=== PATIENT | male | born 1980 | race Caucasian/White ===

== ENCOUNTER 2019-09-28 17:21 | Emergency (ER) | payer SELFPAY ==
[~2019-09-28] VITALS: Ht 180 cm; Wt 91.0 kg
[2019-09-28] MEDS ORDERED: PRD20T PO (19:22)
--- NOTE | 2019-09-28 19:22 | ED Cough/URI ---
General Chief Complaint: Cough/Cold/Flu Symptoms Stated Complaint: FEVER / COUGH / FATIGUE Nursing Triage Note: PT STATES COUGH AND FLU LIKE S/S FOR ABOUT 3 DAYS, HEADACHE OFF AND ON, NO MEDS TAKEN, 98.2 AT TRIAGE. Sepsis Screen: Possible Severe Sepsis Risk History of Present Illness Date Seen by Provider: Oct 01, 2019 Time Seen by Provider: 18:00 Initial Comments 39-year-old male presents for allergy symptoms. He has been noticing postnasal drainage. He denies any risk for COVID. He does believe he possibly had it in late April but was not tested. Timing/Duration: other (3-4 days) Severity/Quality: mild, dry cough Prior Episodes/Possible Cause: occasional episodes Associated Symptoms: cough, nasal congestion, nasal drainage Allergies and Home Medications Allergies Coded Allergies: No Known Drug Allergies (Unverified , 09/28/19) Home Medications Prednisone 20 Mg Tab, 40 MG PO DAILY Prescribed by: YANET TRAVIS on 09/28/191921 Patient Home Medication List Home Medication List Reviewed: Yes Review of Systems Review of Systems Constitutional: no symptoms reported, see HPI EENTM: see HPI, nose congestion Respiratory: see HPI, cough; No short of breath Cardiovascular: no symptoms reported, see HPI Gastrointestinal: no symptoms reported, see HPI Genitourinary: no symptoms reported, see HPI Immunological/Allergic: no symptoms reported, see HPI All Other Systems Reviewed Negative Unless Noted: Yes Past Unaqfmo-Zlablk-Ntrbzy Hx Past Med/Social Hx: Reviewed Nursing Past Med/Soc Hx Patient Social History Alcohol Use: Regular Use Number of Drinks Today: 6 Alcohol Beverage of Choice: Beer Recreational Drug Use: No Smoking Status: Current Everyday Smoker Type Used: Cigarettes Recent Foreign Travel: No Contact w/Someone Who Travel: No Recent Infectious Disease Expo: No Recent Hopitalizations: No Physical Abuse: No Sexual Abuse: No Mistreated: No Fear: No Seasonal Allergies Seasonal Allergies: No Past Medical History Surgeries: Yes (HERNIA WHEN 4 MONTHS OLD) Respiratory: No Cardiac: No Neurological: No Genitourinary: No Gastrointestinal: No Musculoskeletal: No Endocrine: No HEENT: No Cancer: No Psychosocial: No Physical Exam Vital Signs - First Documented 09/28/19 09/28/19 17:52 19:45 Temp 36.7 Pulse 104 Resp 18 B/P (MAP) 131/104 (113) Pulse Ox 97 O2 Delivery Room Air Capillary Refill : Less Than 3 Seconds Height: '" Weight: lbs. oz. kg; 28.00 BMI Method: General Appearance: WD/WN, no apparent distress Eyes: Bilateral Eye Normal Inspection, Bilateral Eye PERRL, Bilateral Eye EOMI HEENT: PERRL/EOMI, normal ENT inspection, TMs normal, other (postnasal drainage) Neck: non-tender, full range of motion, supple, normal inspection Respiratory: chest non-tender, lungs clear, normal breath sounds Cardiovascular: normal peripheral pulses, regular rate, rhythm Gastrointestinal: normal bowel sounds, non tender, soft Neurologic/Psychiatric: no motor/sensory deficits, alert, normal mood/affect, oriented x 3 Skin: normal color, warm/dry Progress/Results/Core Measures Suspected Sepsis Recent Fever Within 48 Hours: Yes Infection Criteria Present: Suspected New Infection New/Unexplained Altered Menta: No Sepsis Screen: Possible Severe Sepsis Risk SIRS Temperature: Pulse: 104 Respiratory Rate: 18 Blood Pressure 131 /104 Mean: 113 Results/Orders My Orders Orders - YANET TRAVIS Prednisone Tablet (Deltasone Tablet) (09/28/19 19:30) Vital Signs/I&O 09/28/19 09/28/19 09/28/19 17:52 17:58 19:45 Temp 36.7 36.7 Pulse 104 95 Resp 18 18 B/P (MAP) 131/104 (113) 145/102 (113) Pulse Ox 97 O2 Delivery Room Air Room Air Room Air Capillary Refill : Less Than 3 Seconds Blood Pressure Mean: 113 Departure Impression Primary Impression: URI (upper respiratory infection) Qualified Codes: J06.9 - Acute upper respiratory infection, unspecified Additional Impressions: Sinus congestion Allergic rhinitis Qualified Codes: J30.2 - Other seasonal allergic rhinitis Disposition: HOME, SELF-CARE Condition: Improved Departure-Patient Inst. Decision time for Depature: 19:15 Referrals: [facility] Patient Instructions: Viral Upper Respiratory Infection, Adult (DC) Add. Discharge Instructions: Take prednisone for the next 3 days as prescribed. Use Afrin nasal spray for 3 days. Use Mucinex one tablet twice daily. Increase water intake. Alternate between Tylenol 650 and ibuprofen 600 mg every 4 hours for fever or pain. Return to the emergency department for new, urgent health care problems. Establish with a primary care provider at [facility]. All discharge instructions reviewed with patient and/or family. Voiced understanding. Scripts Prednisone (Prednisone) 20 Mg Tab 40 MG PO DAILY, #6 TAB 0 Refills Prov: YANET TRAVIS 09/28/19 YANET TRAVIS Sep 28, 2019 19:22
[2019-09-28] MEDS ORDERED: predniSONE 20 MG TAB PO ONE (19:30)
[2019-09-28 19:45] VITALS: BP 145/102
== END 2019-09-28 19:44 | disposition home or self-care (01) ==
LOC: ER 17:22
DX: J06.9 Acute upper respiratory infection, unspecified (principal); J30.9 Allergic rhinitis, unspecified; F17.210 Nicotine dependence, cigarettes, uncomplicated
CPT/HCPCS: 99283

== ENCOUNTER 2019-11-08 10:59 | Emergency (ER) | payer SELFPAY ==
[~2019-11-08] VITALS: Ht 180 cm; Wt 97.0 kg
[~2019-11-08 10:59] MED LIST: PRD20T PO
[2019-11-08] MEDS ORDERED: TETANUS,DIPTH,PERTUSS P/F (BOOSTRIX) 0.5 ML VIAL IM ONE (11:15)
--- NOTE | 2019-11-08 11:24 | ED Upper Extremity ---
General Chief Complaint: Laceration Stated Complaint: FINGER LACERATION Nursing Triage Note: PT WAS CUTTING WITH A SKILL SAW AND CUT HIS SECOND DIGIT IN THE LT HAND. APPEARS TO HAVE CUT THE PAD OFF BUT NOT INTO THE BONE. Nursing Sepsis Screen: No Definite Risk Source: patient Exam Limitations: no limitations History of Present Illness Date Seen by Provider: Nov 08, 2019 Time Seen by Provider: 11:17 Initial Comments Laceration to the tip of the pointer finger on the left hand. This was from a skill saw while at work. He states it is not a Workmen's Comp. issue. Onset: just prior to arrival Severity: moderate Pain/Injury Location: left 2nd finger Method of Injury: direct blow Allergies and Home Medications Allergies Coded Allergies: No Known Drug Allergies (Unverified , 09/28/19) Home Medications Prednisone 20 Mg Tab, 40 MG PO DAILY Prescribed by: YANET TRAVIS on 09/28/191921 Patient Home Medication List Home Medication List Reviewed: Yes Review of Systems Constitutional: see HPI EENTM: see HPI Respiratory: no symptoms reported Cardiovascular: no symptoms reported Genitourinary: no symptoms reported Musculoskeletal: see HPI Skin: no symptoms reported Psychiatric/Neurological: No Symptoms Reported Past Awulrqx-Sibeij-Qhjjhg Hx Patient Social History Alcohol Use: Occasionally Uses Number of Drinks Today: AA Alcohol Beverage of Choice: Beer Recreational Drug Use: No Smoking Status: Current Everyday Smoker Type Used: Cigarettes Recent Foreign Travel: No Contact w/Someone Who Travel: No Recent Infectious Disease Expo: No Recent Hopitalizations: No Seasonal Allergies Seasonal Allergies: No Past Medical History Surgeries: Yes (HERNIA WHEN 4 MONTHS OLD) Respiratory: No Cardiac: No Neurological: No Genitourinary: No Gastrointestinal: No Musculoskeletal: No Endocrine: No HEENT: No Cancer: No Psychosocial: No Physical Exam Vital Signs Vital Signs - First Documented 11/08/19 11:10 Temp 36.6 Pulse 91 Resp 20 B/P (MAP) 152/103 (119) Pulse Ox 96 O2 Delivery Room Air Capillary Refill : Less Than 3 Seconds Height, Weight, BMI Height: '" Weight: lbs. oz. kg; 29.00 BMI Method: General Appearance: WD/WN, no apparent distress HEENT: PERRL/EOMI, normal ENT inspection Respiratory: no respiratory distress, no accessory muscle use Elbow/Forearm: normal inspection, non-tender Wrist: Yes normal inspection, Yes non-tender Hand: normal inspection, Left (skin avulsion of the pad of the pointer finger on the left. Bleeding is controlled. This is down to the tip of the phalanx but bone is still covered with periosteum so for this reason I will not run., We'll put a big bulky dressing and allow this to heal by secondary intent.) Progress/Results/Core Measures Results/Orders My Orders Orders - FRANTZ CRANE APRN Dipht,Pertuss(Acell),Tet Adult (Boostrix (11/08/19 11:15) Vital Signs/I&O 11/08/19 11:10 Temp 36.6 Pulse 91 Resp 20 B/P (MAP) 152/103 (119) Pulse Ox 96 O2 Delivery Room Air Blood Pressure Mean: 119 Departure Impression Primary Impression: Skin avulsion Disposition: 01 HOME, SELF-CARE Condition: Stable Departure-Patient Inst. Decision time for Depature: 11:22 Patient Instructions: SKIN AVULSION Add. Discharge Instructions: 1. Leave this dressing in place for about 48 hours. Return to ER Friday at about noon or shortly after and we'll replace the dressing and take another look at the wound. In the meantime take antibiotics and pain medication as directed. Scripts Amoxicillin/Potassium Clav (Augmentin 875-125 Tablet) 1 Each Tablet 1 EACH PO BID, #14 TAB 0 Refills Prov: FRANTZ CRANE APRN 11/08/19 FRANTZ CRANE APRN Nov 08, 2019 11:24
[2019-11-08] MEDS ORDERED: HYDR-3870 PO (11:25)
[2019-11-08] MEDS ORDERED: AMOX-358 PO (11:25)
[2019-11-08 11:45] VITALS: BP 145/98
== END 2019-11-08 11:45 | disposition home or self-care (01) ==
LOC: EDUNIT# 10:59 → ER 11:00
DX: S61.211A Laceration without foreign body of left index finger without damage to nail, initial encounter (principal); F17.210 Nicotine dependence, cigarettes, uncomplicated; Z79.52 Long term (current) use of systemic steroids; Z23 Encounter for immunization; W27.0XXA Contact with workbench tool, initial encounter; Y92.89 Other specified places as the place of occurrence of the external cause; Y99.0 Civilian activity done for income or pay
CPT/HCPCS: 64450; 90715

== ENCOUNTER 2019-12-01 11:14 | Emergency (ER) | payer SELFPAY ==
[~2019-12-01] VITALS: Ht 180 cm; Wt 95.0 kg
[~2019-12-01 11:14] MED LIST changes: +AMOX-358 PO; +HYDR-3870 PO
[2019-12-01] MEDS ORDERED: HYDROcodone/APAP 5 MG/325 MG (LORTAB) TAB PO ONE (12:00)
--- NOTE | 2019-12-01 12:27 | Diagnostic Imaging Report ---
INDICATION: Left shoulder pain post fall. EXAMINATION: AP, oblique, and lateral views of the left shoulder are obtained. FINDINGS: No fracture or acute bony abnormality is seen. There are degenerative changes in glenohumeral joint with inferior glenoid spurring. There is a benign-appearing cystic lesion in the humeral head. IMPRESSION: Chronic changes as above with no acute-appearing abnormality. Dictated by: Dictated on workstation # [id number]
[2019-12-01] MEDS ORDERED: ACHD5005 PO (12:37)
[2019-12-01] MEDS ORDERED: NAPR-1071 PO (12:37)
--- NOTE | 2019-12-01 12:38 | ED Upper Extremity ---
General Chief Complaint: Upper Extremity Stated Complaint: L SHOULDER PAIN Nursing Triage Note: PT ARRIVES TO ER WITH C/O L SHOULDER PAIN DUE TO A FALL THIS MORNING WHILE GETTING GAS. PAIN STARTS IN ELBOW AND GOES UP TO SHOULDER. PT STATES MUSCLE FEELS TIGHT. Nursing Sepsis Screen: No Definite Risk Source: patient Exam Limitations: no limitations History of Present Illness Date Seen by Provider: Dec 01, 2019 Time Seen by Provider: 12:34 Initial Comments Left shoulder pain after fall out of his truck this morning. Fell and landed on left shoulder. Onset: just prior to arrival Severity: moderate Pain/Injury Location: left shoulder Method of Injury: fell Modifying Factors: Worse With Movement Allergies and Home Medications Allergies Coded Allergies: No Known Drug Allergies (Unverified , 09/28/19) Home Medications Amoxicillin/Potassium Clav 1 Each Tablet, 1 EACH PO BID Prescribed by: FRANTZ CRANE on 11/08/19 1125 Hydrocodone/Acetaminophen 1 Each Tablet, 1 EACH PO Q4-6HR PRN for PAIN-MODERATE Prescribed by: FRANTZ CRANE on 11/08/19 1125 Prednisone 20 Mg Tab, 40 MG PO DAILY Prescribed by: YANET TRAVIS on 09/28/191921 Patient Home Medication List Home Medication List Reviewed: Yes Review of Systems Constitutional: see HPI EENTM: see HPI Respiratory: no symptoms reported Cardiovascular: no symptoms reported Genitourinary: no symptoms reported Musculoskeletal: see HPI Skin: no symptoms reported Psychiatric/Neurological: No Symptoms Reported Past Vqokmbw-Mgtzot-Fbglud Hx Patient Social History Alcohol Beverage of Choice: Beer Type Used: Cigarettes Recent Foreign Travel: No Contact w/Someone Who Travel: No Recent Infectious Disease Expo: No Recent Hopitalizations: No Seasonal Allergies Seasonal Allergies: No Past Medical History Surgeries: Yes (HERNIA WHEN 4 MONTHS OLD) Respiratory: No Cardiac: No Neurological: No Genitourinary: No Gastrointestinal: No Musculoskeletal: No Endocrine: No HEENT: No Cancer: No Psychosocial: No Physical Exam Vital Signs Vital Signs - First Documented 12/01/19 11:24 Temp 36.8 Pulse 102 Resp 20 B/P (MAP) 153/101 (118) Pulse Ox 97 Capillary Refill : Less Than 3 Seconds Height, Weight, BMI Height: '" Weight: lbs. oz. kg; 29.00 BMI Method: General Appearance: WD/WN, no apparent distress Respiratory: no respiratory distress, no accessory muscle use Shoulder: normal inspection, limited ROM (does have full ROM but it is painful and he completes ROM exercises slowly. ) Elbow/Forearm: normal inspection, non-tender Wrist: Yes normal inspection, Yes non-tender Hand: normal inspection, non-tender Neurologic/Psychiatric: alert, normal mood/affect, oriented x 3 Skin: normal color, warm/dry Progress/Results/Core Measures Results/Orders My Orders Orders - FRANTZ CRANE APRN Shoulder, Left, 3 Views (12/01/19 11:45) Hydrocodone/Apap 5/325 Tablet (Lortab 5 (12/01/19 12:00) Ct Extremity Upper Left Wo (12/01/19 12:25) Medications Given in ED Current Medications Medications Dose Ordered Sig/Arlet Route Start Time Stop Time Status Last Admin Dose Admin Acetaminophen/ Hydrocodone Bitart 1 tab ONCE ONCE PO 12/01/19 12:00 12/01/19 12:01 DC 12/01/19 12:00 1 TAB Vital Signs/I&O 12/01/19 11:24 Temp 36.8 Pulse 102 Resp 20 B/P (MAP) 153/101 (118) Pulse Ox 97 Blood Pressure Mean: 118 Departure Impression Primary Impression: Internal derangement of left shoulder Disposition: HOME, SELF-CARE Condition: Stable Departure-Patient Inst. Decision time for Depature: 12:35 Referrals: NO,LOCAL PHYSICIAN (PCP) Primary Care Physician YAA ELLINGTON BETHANY N MD GAULT,KARLENE HARDING,KRISTIAN HARDING,MALOU Krueger MD Patient Instructions: How to Use a Shoulder Sling Add. Discharge Instructions: 1. Follow-up with a primary care physician. If the pain sticks around into next week then you need to get an MRI of the shoulder to look at the soft tissues which cannot be seen on x-ray. This could represent a rotator cuff or labrum injury. Pain medication as directed, ice pack, sling. When you're able to move the arm without pain in the shoulder then you can stop using the sling. All discharge instructions reviewed with patient and/or family. Voiced understanding. Scripts Naproxen (Naprosyn) 500 Mg Tablet 500 MG PO BID PRN for PAIN-MODERATE (5-7), #30 TAB 0 Refills Prov: FRANTZ CRANE APRN 12/01/19 Work/School Note: Work Release Form Date Seen in the Emergency Department: Dec 01, 2019 Return to Work: Dec 03, 2019 FRANTZ CRANE APRN Dec 01, 2019 12:38
[2019-12-01 12:45] VITALS: BP 150/97
== END 2019-12-01 12:45 | disposition home or self-care (01) ==
LOC: EDUNIT# 11:14 → ER 11:16
DX: M24.812 Other specific joint derangements of left shoulder, not elsewhere classified (principal); Z79.52 Long term (current) use of systemic steroids
CPT/HCPCS: 73030

== ENCOUNTER 2019-12-29 12:46 | Emergency (ER) | payer SELFPAY ==
[~2019-12-29] VITALS: Ht 180.3 cm; Wt 100.0 kg
[~2019-12-29 12:46] MED LIST changes: +ACHD5005 PO; +NAPR-1071 PO
--- NOTE | 2019-12-29 13:46 | ED Upper Extremity ---
General Stated Complaint: L SHOULDER POPPING OUT OF SOCKET History of Present Illness Date Seen by Provider: Dec 29, 2019 Time Seen by Provider: 13:25 Initial Comments 39-year-old male presents for left shoulder pain. He states that it maybe subluxating at times. He was evaluated here on 12/01/19 after an injury at work to his left shoulder. Since then he's been taking the naproxen intermi ttently. He is returning since his symptoms have not improved. He has not seen a primary care provider or orthopedic surgeon for the shoulder. He is able to continue working. Onset: other (since 12/01/19) Pain/Injury Location: left shoulder Method of Injury: fell Modifying Factors: Improves With Pain Medication, Improves With Rest Allergies and Home Medications Allergies Coded Allergies: No Known Drug Allergies (Unverified , 09/28/19) Home Medications Amoxicillin/Potassium Clav 1 Each Tablet, 1 EACH PO BID Prescribed by: FRANTZ CRANE on 11/08/19 1125 Hydrocodone/Acetaminophen 1 Each Tablet, 1 EACH PO Q4-6HR PRN for PAIN-MODERATE Prescribed by: FRANTZ CRANE on 11/08/19 1125 Hydrocodone/Acetaminophen 1 Each Tablet, 1 EACH PO Q4H PRN for PAIN-MODERATE (5- 7) Prescribed by: FRANTZ CRANE on 12/01/19 1238 Naproxen 500 Mg Tablet, 500 MG PO BID PRN for PAIN-MODERATE (5-7) Prescribed by: FRANTZ CRANE on 12/01/19 1237 Prednisone 20 Mg Tab, 40 MG PO DAILY Prescribed by: YANET TRAVIS on 09/28/19 1922 Patient Home Medication List Home Medication List Reviewed: Yes Review of Systems Constitutional: no symptoms reported, see HPI Musculoskeletal: see HPI, joint pain (left shoulder pain) All Other Systems Reviewed Negative Unless Noted: Yes Past Zrvntuz-Glqzeh-Nxoeji Hx Past Med/Social Hx: Reviewed Nursing Past Med/Soc Hx Patient Social History Alcohol Beverage of Choice: Beer Type Used: Cigarettes Recent Foreign Travel: No Contact w/Someone Who Travel: No Recent Hopitalizations: No Seasonal Allergies Seasonal Allergies: No Past Medical History Surgeries: Yes (HERNIA WHEN 4 MONTHS OLD) Respiratory: No Cardiac: No Neurological: No Genitourinary: No Gastrointestinal: No Musculoskeletal: No Endocrine: No HEENT: No Cancer: No Psychosocial: No Physical Exam Vital Signs Vital Signs - First Documented 12/29/19 13:22 Temp 36.6 Pulse 96 Resp 16 B/P (MAP) 138/106 (117) O2 Delivery Room Air Capillary Refill : Height, Weight, BMI Height: '" Weight: lbs. oz. kg; 29.00 BMI Method: General Appearance: WD/WN, no apparent distress Neck: non-tender, full range of motion, supple, normal inspection Cardiovascular: normal peripheral pulses, regular rate, rhythm Respiratory: chest non-tender, lungs clear, normal breath sounds Shoulder: normal inspection; No asymmetry, No bone tenderness, No deformity, No ecchymosis; limited ROM (secondary to pain, lacking 20 of extension), pain (left shoulder), soft tissue tenderness (anterior) Elbow/Forearm: normal inspection, non-tender, normal ROM, Left Neurologic/Tendon: normal sensation, normal motor functions, normal tendon functions Neurologic/Psychiatric: no motor/sensory deficits, alert, normal mood/affect, oriented x 3 Left shoulder biceps, triceps, and external rotators V/V. negative apprehension and impingement. No instability left shoulder. Progress/Results/Core Measures Results/Orders Vital Signs/I&O 12/29/19 13:22 Temp 36.6 Pulse 96 Resp 16 B/P (MAP) 138/106 (117) O2 Delivery Room Air Departure Impression Primary Impression: Left shoulder pain Qualified Codes: M25.512 - Pain in left shoulder Disposition: 01 HOME, SELF-CARE Condition: Improved Departure-Patient Inst. Decision time for Depature: 13:40 Referrals: [facility] MICHAEL,LOCAL PHYSICIAN (PCP) Primary Care Physician AKSHAT DWYER MD, MICHAEL P MD Patient Instructions: Shoulder Pain (DC) Add. Discharge Instructions: Ice to left shoulder 20 minutes every 2 hours while awake. Alternate between ibuprofen 600 mg and Tylenol 650 mg every 4 hours for pain. Establish care with a primary care provider at [facility]. You may go to [facility] and be referred to orthopedics for your shoulder pain or if your insurance allows you may schedule a direct appointment with Dr. Dywer or Dr. Trujillo. Return to the emergency department for new, urgent health care problems. YANET TRAVIS Dec 29, 2019 13:46
[2019-12-29 13:57] VITALS: BP 144/74
== END 2019-12-29 13:57 | disposition home or self-care (01) ==
LOC: EDUNIT# 12:46 → ER 12:47
DX: M25.512 Pain in left shoulder (principal); Z79.52 Long term (current) use of systemic steroids

== ENCOUNTER 2020-12-15 10:41 | Emergency (ER) | payer OTHER ==
[~2020-12-15] VITALS: Ht 180 cm; Wt 120.0 kg
[2020-12-15] MEDS ORDERED: HYDROcodone/APAP 5 MG/325 MG (LORTAB) TAB PO ONE (11:00)
--- NOTE | 2020-12-15 11:07 | ED Lower Extremity ---
General Chief Complaint: Lower Extremity Stated Complaint: LEFT FOOT FRACTURE Source: patient Exam Limitations: no limitations History of Present Illness Date Seen by Provider: Dec 15, 2020 Time Seen by Provider: 11:05 Initial Comments To ER with increased left ankle pain without antecedent injury since Friday of this week. No fevers or chills. He had an infection in his right ankle postoperatively after he fell sustaining bilateral calcaneus fractures in February of this year. He was treated by Dr. Kirkpatrick at [facility] in [place]. Onset: other (2 days ago) Severity: moderate Pain/Injury Location: right ankle Method of Injury: unknown (No known injury recently) Modifying Factors: Worse With Movement Allergies and Home Medications Allergies Coded Allergies: No Known Drug Allergies (Unverified , 09/28/19) Patient Home Medication List Home Medication List Reviewed: Yes Amoxicillin/Potassium Clav (Augmentin 875-125 Tablet) 1 Each Tablet, 1 EACH PO BID Prescribed by: FRANTZ CRANE on 11/08/19 1125 Hydrocodone/Acetaminophen (Lorcet 5-325 mg Tablet) 1 Each Tablet, 1 EACH PO Q4- 6HR PRN for PAIN-MODERATE Prescribed by: FRANTZ CRANE on 11/08/19 1125 Hydrocodone/Acetaminophen (Hydrocodone-Acetamin 5-325 mg) 1 Each Tablet, 1 EACH PO Q4H PRN for PAIN-MODERATE (5-7) Prescribed by: FRANTZ CRANE on 12/01/19 1238 Hydrocodone/Acetaminophen (Hydrocodone-Acetamin 5-325 mg) 1 Each Tablet, 1 TAB PO Q4H PRN for PAIN-MODERATE (5-7) Prescribed by: FRANTZ CRANE on 12/15/20 1213 Meloxicam (Mobic) 15 Mg Tablet, 15 MG PO DAILY Prescribed by: FRANZT CRANE on 12/15/20 1213 Naproxen (Naprosyn) 500 Mg Tablet, 500 MG PO BID PRN for PAIN-MODERATE (5-7) Prescribed by: FRANTZ CRANE on 12/01/19 1237 Prednisone (Prednisone) 20 Mg Tab, 40 MG PO DAILY Prescribed by: YANET TRAVIS on 09/28/19 1922 Review of Systems Constitutional: see HPI; No chills, No fever EENTM: see HPI Respiratory: no symptoms reported Cardiovascular: no symptoms reported Genitourinary: no symptoms reported Musculoskeletal: no symptoms reported Skin: no symptoms reported Psychiatric/Neurological: No Symptoms Reported Past Vfqpmct-Kkhnde-Bmtnof Hx Seasonal Allergies Seasonal Allergies: No Past Medical History Surgeries: Yes (HERNIA WHEN 4 MONTHS OLD) Respiratory: No Cardiac: No Neurological: No Genitourinary: No Gastrointestinal: No Musculoskeletal: No Endocrine: No HEENT: No Cancer: No Psychosocial: No Physical Exam Vital Signs Vital Signs - First Documented 12/15/20 12/15/20 10:51 11:19 Temp 36.8 Pulse 127 Resp 22 B/P (MAP) 120/98 (105) Pulse Ox 97 O2 Delivery Room Air Capillary Refill : Height, Weight, BMI Height: '" Weight: lbs. oz. kg; 30.00 BMI Method: General Appearance: WD/WN, no apparent distress HEENT: PERRL/EOMI, normal ENT inspection Neck: non-tender, full range of motion Hips: bilateral hip non-tender, bilateral hip normal inspection, bilateral hip normal range of motion Legs: bilateral leg non-tender, bilateral leg normal inspection, bilateral leg normal range of motion Knees: bilateral knee non-tender, bilateral knee normal inspection, bilateral knee normal range of motion Ankles: left ankle swelling, left ankle other (No erythema. There is no open wound.) Feet: bilateral foot non-tender, bilateral foot normal inspection, bilateral foot normal range of motion Neurologic/Psychiatric: alert, normal mood/affect, oriented x 3 Skin: normal color, warm/dry Procedures/Interventions Additional Procedures: Arthrocentesis Aspirating Progress Under sterile technique did an arthrocentesis of the left ankle identifying a space between the medial malleolus and the tibialis anterior tendon. Marked with a skin pen cleansed with Betadine which was allowed to dry. Anesthetized with a 25-gauge needle using 1 mL of 1 percent lidocaine without epinephrine. Then stuck a longer 20-gauge needle into the joint space and aspirated 1.25 mL of serosanguineous but not cloudy synovial fluid. Covered with a Band-Aid. Progress/Results/Core Measures Results/Orders Lab Results Laboratory Tests Test 12/15/20 11:13 12/15/20 11:52 12/15/20 12:02 Range/Units White Blood Count 15.1 H 4.3-11.0 10^3/uL Red Blood Count 5.48 4.30-5.52 10^6/uL Hemoglobin 16.1 13.3-17.7 g/dL Hematocrit 49 40-54 % Mean Corpuscular Volume 89 80-99 fL Mean Corpuscular Hemoglobin 29 25-34 pg Mean Corpuscular Hemoglobin Concent 33 32-36 g/dL Red Cell Distribution Width 14.1 10.0-14.5 % Platelet Count 372 130-400 10^3/uL Mean Platelet Volume 10.4 9.0-12.2 fL Immature Granulocyte % (Auto) 2 % Neutrophils (%) (Auto) 63 42-75 % Lymphocytes (%) (Auto) 18 12-44 % Monocytes (%) (Auto) 14 H 0-12 % Eosinophils (%) (Auto) 2 0-10 % Basophils (%) (Auto) 1 0-10 % Neutrophils # (Auto) 9.6 H 1.8-7.8 10^3/uL Lymphocytes # (Auto) 2.8 1.0-4.0 10^3/uL Monocytes # (Auto) 2.1 H 0.0-1.0 10^3/uL Eosinophils # (Auto) 0.3 0.0-0.3 10^3/uL Basophils # (Auto) 0.2 H 0.0-0.1 10^3/uL Immature Granulocyte # (Auto) 0.3 H 0.0-0.1 10^3/uL Neutrophils % (Manual) 69 % Lymphocytes % (Manual) 14 % Monocytes % (Manual) 9 % Eosinophils % (Manual) 4 % Basophils % (Manual) 0 % Band Neutrophils 4 % Blood Morphology Comment NORMAL Erythrocyte Sedimentation Rate 1 0-15 MM/HR Sodium Level 138 135-145 MMOL/L Potassium Level 3.8 3.6-5.0 MMOL/L Chloride Level 102 98-107 MMOL/L Carbon Dioxide Level 24 21-32 MMOL/L Anion Gap 12 5-14 MMOL/L Blood Urea Nitrogen 15 7-18 MG/DL Creatinine 0.96 0.60-1.30 MG/DL Estimat Glomerular Filtration Rate 86 BUN/Creatinine Ratio 16 Glucose Level 111 H 70-105 MG/DL Calcium Level 9.5 8.5-10.1 MG/DL Lactic Acid Level 1.15 0.50-2.00 MMOL/L Procalcitonin 0.04 <0.10 NG/ML Body Fluid Source SYNOVIAL Body Fluid Color YELLOW Body Fluid Appearance SLT BLDY Body Fluid WBC 755 /uL Body Fluid RBC 6250 /uL Body Fluid Polynuclear WBCs 7 % Body Fluid Mononuclear WBCs 11 % Body Fluid Lymphocytes 82 % Body Fluid Eosinophils % Body Fluid Other Cells % Micro Results Microbiology 12/15/20 Blood Culture - Preliminary, Resulted My Orders Orders - FRANTZ CRANE APRN Cbc With Automated Diff (12/15/20 11:00) Erythrocyte Sedimentation Rate (12/15/20 11:00) Basic Metabolic Panel (12/15/20 11:00) Ankle, Left, 3 Views (12/15/20 11:00) Hydrocodone/Apap 5/325 Tablet (Lortab 5 (12/15/20 11:00) Manual Differential (12/15/20 11:13) Blood Culture (12/15/20 11:42) Lactic Acid Analyzer (12/15/20 11:42) Procalcitonin (Pct) (12/15/20 11:42) Body Fluid Cell Count (12/15/20 11:45) Body Fluid Culture (12/15/20 11:45) Lidocaine 1% Inj 20 Ml (Xylocaine 1% Inj (12/15/20 11:45) Ketorolac Injection (Toradol Injection) (12/15/20 12:15) Medications Given in ED Vital Signs/I&O 12/15/20 12/15/20 12/15/20 12/15/20 10:51 11:19 12:17 13:17 Temp 36.8 Pulse 127 111 96 109 Resp 22 20 20 20 B/P (MAP) 120/98 (105) 120/77 129/87 135/75 Pulse Ox 97 94 96 O2 Delivery Room Air Room Air Room Air Room Air Departure Communication (Admissions) Family Conversation 12/16/2020-12:30 PM lab called to report on blood culture appearance of Listeria. Given that he did have a leukocytosis yesterday I will call him in some Bactrim to [facility]. I did notify him of this via telephone and he agrees with this plan. He does not have any fevers nausea vomiting or GI type illness. He is not known to be immunocompromised. The joint fluid culture has not yet grown anything. NAME: SHERI CHUN [facility] REC#: [id number] PT STATUS: REG ER : 1980 PHYSICIAN: FRANTZ CRANE APRN ADMIT DATE: 12/15/20/ER Draft Date of Exam:12/15/20 ANKLE, LEFT, 3 VIEWS INDICATION: Left ankle pain. TIME OF EXAM: 11:18 AM 3 views of the left ankle were obtained. Alignment is normal, ankle mortise is well maintained. Talar dome is smooth. No definite ankle fracture is identified. There are postoperative changes to the calcaneus which appears to be significantly comminuted. There are residual calcaneal fracture lines present. IMPRESSION: Postoperative changes to the calcaneus. No acute ankle fracture is detected. Dictated on workstation # [id number] Dict: 12/15/20 1150 Trans: 12/15/20 1155 CV [id number] Interpreted by: VERONICA SWEET MD Electronically signed by: Impression Primary Impression: Osteoarthritis of left ankle Disposition: HOME, SELF-CARE Condition: Stable Departure-Patient Inst. Decision time for Depature: 12:12 Referrals: NO,LOCAL PHYSICIAN (PCP/Family) Primary Care Physician Patient Instructions: Osteoarthritis Add. Discharge Instructions: . Medication as directed. Follow-up with your orthopedist from [place]. Return to ER for any concerns such as fevers redness or anything else that worries you. All discharge instructions reviewed with patient and/or family. Voiced understanding. Scripts Sulfamethoxazole/Trimethoprim (Bactrim Ds Tablet) 1 Each Tablet 1 EACH PO BID, #14 TAB Prov: FRANTZ CRANE APRN 12/16/20 Ampicillin Trihydrate (Ampicillin Trihydrate) 500 Mg Capsule 500 MG PO Q6H, #20 CAP Prov: FRANTZ CRANE APRN 12/16/20 Meloxicam (Mobic) 15 Mg Tablet 15 MG PO DAILY, #15 TAB Prov: FRANTZ CRANE APRN 12/15/20 Hydrocodone/Acetaminophen (Hydrocodone-Acetamin 5-325 mg) 1 Each Tablet 1 TAB PO Q4H PRN for PAIN-MODERATE (5-7), #14 TAB Prov: FRANTZ CRANE APRN 12/15/20 FRANTZ CRANE APRN Dec 15, 2020 11:07
[2020-12-15 11:16] LABS: BASOPHILS # (AUTO) 0.2 10^3/uL (0.0-0.1); BASOPHILS % (AUTO) 1 % (0-10); EOSINOPHILS # (AUTO) 0.3 10^3/uL (0.0-0.3); EOSINOPHILS % (AUTO) 2 % (0-10); HEMATOCRIT 49 % (40-54); HEMOGLOBIN 16.1 g/dL (13.3-17.7); LYMPHOCYTES # (AUTO) 2.8 10^3/uL (1.0-4.0); LYMPHOCYTES % (AUTO) 18 % (12-44); MEAN CORPUSCULAR HEMOGLOBIN 29 pg (25-34); MEAN CORPUSCULAR HGB CONC 33 g/dL (32-36); MEAN CORPUSCULAR VOLUME 89 fL (80-99); MEAN PLATELET VOLUME 10.4 fL (9.0-12.2); MONOCYTES # (AUTO) 2.1 10^3/uL (0.0-1.0); MONOCYTES % (AUTO) 14 % (0-12); NEUTROPHILS # (AUTO) 9.6 10^3/uL (1.8-7.8); NEUTROPHILS % (AUTO) 63 % (42-75); PLATELET COUNT 372 10^3/uL (130-400); WHITE BLOOD COUNT 15.1 10^3/uL (4.3-11.0)
[2020-12-15 11:31] LABS: CALCIUM 9.5 MG/DL (8.5-10.1); CREATININE SERUM 0.96 MG/DL (0.60-1.30); POTASSIUM 3.8 MMOL/L (3.6-5.0)
[2020-12-15] MEDS ORDERED: LIDOCAINE 1% INJ 20 ML 20 ML VIAL INJ ONE (11:45)
--- NOTE | 2020-12-15 11:55 | Diagnostic Imaging Report ---
INDICATION: Left ankle pain. TIME OF EXAM: 11:18 AM 3 views of the left ankle were obtained. Alignment is normal, ankle mortise is well maintained. Talar dome is smooth. No definite ankle fracture is identified. There are postoperative changes to the calcaneus which appears to be significantly comminuted. There are residual calcaneal fracture lines present. IMPRESSION: Postoperative changes to the calcaneus. No acute ankle fracture is detected. Dictated by: Dictated on workstation # [id number]
[2020-12-15 12:03] LABS: BAND NEUTROPHILS 4 %; BASOPHILS % (MANUAL) 0 %; EOSINOPHILS % (MANUAL) 4 %; ERYTHROCYTE SEDIMENTATION RATE 1 MM/HR (0-15); LYMPHOCYTES % (MANUAL) 14 %; MONOCYTES % (MANUAL) 9 %; NEUTROPHILS % (MANUAL) 69 %; RBC MORPH NORMAL
[2020-12-15] MEDS ORDERED: ACHD5005 PO (12:13)
[2020-12-15] MEDS ORDERED: MELO15TA14 PO (12:13)
[2020-12-15] MEDS ORDERED: KETOROLAC 30 MG/ML VIAL IVP ONE (12:15)
[2020-12-15 13:17] VITALS: BP 135/75
[2020-12-15 13:17] LABS: BODY FLUID COLOR YELLOW; BODY FLUID SOURCE SYNOVIAL
[2020-12-15 13:18] LABS: BODY FLUID APPEARENCE SLT BLDY; BODY FLUID RBC COUNT 6250 /uL; BODY FLUID WBC TOTAL COUNT 755 /uL; LYMPHOCYTES,BODY FLUID 82 %
[2020-12-16] MEDS ORDERED: AMPI500C9 PO (12:38)
[2020-12-16] MEDS ORDERED: SULF1TAB38 PO (12:38)
== END 2020-12-15 13:17 | disposition home or self-care (01) ==
LOC: EDUNIT# 10:41 → ER 10:45
DX: M19.072 Primary osteoarthritis, left ankle and foot (principal); Z79.52 Long term (current) use of systemic steroids
CPT/HCPCS: 36415; 73610; 80048; 83605; 84145; 85007; 85027; 85652; 87040; 87070; 87077; 87205; 89051

== ENCOUNTER 2022-01-13 15:13 | Emergency (ER) | payer OTHER ==
[~2022-01-13] VITALS: Ht 180 cm; Wt 122.0 kg
[~2022-01-13 15:13] MED LIST changes: +AMPI500C9 PO; +MELO15TA14 PO; +SULF1TAB38 PO
--- NOTE | 2022-01-13 15:44 | ED General ---
General Chief Complaint: General Problems/Pain Stated Complaint: ISSUE WITH PICC LINE Nursing Triage Note: STATES PICC LINE IS NOT WORKING AND IT IS TIME FOR HIS ABX. Source of Information: Patient Exam Limitations: No Limitations History of Present Illness Date Seen by Provider: Jan 13, 2022 Time Seen by Provider: 15:25 Initial Comments Patient is a 41-year-old male who presents to the emergency department for evaluation of his PICC line that he states is not working normally. Patient has had a long-term indwelling PICC line for antibiotic treatment related to o steomyelitis in his right foot. Oertli taking daily daptomycin and Rocephin. He states his attempted to flush the line earlier today and it seemed to flush very sluggishly. Patient was seen and had the PICC line placed at [facility] in [place]. He states he has no other acute complaints at this time. Home health has been changing the dressing every 7 days. Patient denies any fever. He also denies any leakage from the PICC line site. Allergies and Home Medications Allergies Coded Allergies: No Known Drug Allergies (Unverified , 09/28/19) Patient Home Medication List Home Medication List Reviewed: Yes Amoxicillin/Potassium Clav (Augmentin 875-125 Tablet) 1 Each Tablet, 1 EACH PO BID Prescribed by: FRANTZ CRANE on 11/08/19 1125 Ampicillin Trihydrate (Ampicillin Trihydrate) 500 Mg Capsule, 500 MG PO Q6H Prescribed by: FRANTZ CRANE on 12/16/20 1238 Hydrocodone/Acetaminophen (Lorcet 5-325 mg Tablet) 1 Each Tablet, 1 EACH PO Q4- 6HR PRN for PAIN-MODERATE Prescribed by: FRANTZ CRANE on 11/08/19 1125 Hydrocodone/Acetaminophen (Hydrocodone-Acetamin 5-325 mg) 1 Each Tablet, 1 EACH PO Q4H PRN for PAIN-MODERATE (5-7) Prescribed by: FRANTZ CRANE on 12/01/19 1238 Hydrocodone/Acetaminophen (Hydrocodone-Acetamin 5-325 mg) 1 Each Tablet, 1 TAB PO Q4H PRN for PAIN-MODERATE (5-7) Prescribed by: FRANTZ CRANE on 12/15/20 1213 Meloxicam (Mobic) 15 Mg Tablet, 15 MG PO DAILY Prescribed by: FRANTZ CRANE on 12/15/20 1213 Naproxen (Naprosyn) 500 Mg Tablet, 500 MG PO BID PRN for PAIN-MODERATE (5-7) Prescribed by: FRANTZ CRAEN on 12/01/19 1237 Prednisone (Prednisone) 20 Mg Tab, 40 MG PO DAILY Prescribed by: YANET TRAVIS on 09/28/19 192 Sulfamethoxazole/Trimethoprim (Bactrim Ds Tablet) 1 Each Tablet, 1 EACH PO BID Prescribed by: FRANTZ CRANE on 12/16/20 1238 Review of Systems Review of Systems Constitutional: no symptoms reported EENTM: no symptoms reported Respiratory: no symptoms reported Cardiovascular: no symptoms reported Gastrointestinal: no symptoms reported Genitourinary: no symptoms reported Musculoskeletal: no symptoms reported Skin: no symptoms reported Psychiatric/Neurological: No Symptoms Reported Hematologic/Lymphatic: No Symptoms Reported Immunological/Allergic: no symptoms reported Past Xqvnfqy-Xsndlg-Jydxeq Hx Patient Social History Tobacco Use?: Yes Use of E-Cig and/or Vaping dev: Yes Substance use?: No Alcohol Use?: No Immunizations Up To Date First/Initial COVID19 Vaccinat: UNKNOWN Second COVID19 Vaccination Jaylen: SEP 2020 COVID19 Vaccine 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 oz. 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 PICC line site appears clean dry and intact. No drainage or bleeding noted from the site. The infusion port was flushed easily with saline. There was brisk return of blood with aspiration. A total of 30 mL of saline was flushed into the line. Patient will be discharged home with recommendations for supportive care and follow-up with PCP as needed. Return precautions for urgent symptomology discussed. Patient verbalized understanding Departure Impression Primary Impression: PIC line (peripherally inserted central catheter) flush Disposition: 01 HOME, SELF-CARE Condition: Stable Departure-Patient Inst. Decision time for Depature: 15:40 Referrals: NO,LOCAL PHYSICIAN (PCP/Family) Primary Care Physician Patient Instructions: Peripherally-Inserted Central Catheter (DC) KIRT JENNINGS APRN Jan 13, 2022 15:44
[2022-01-13 15:46] VITALS: BP 125/79
== END 2022-01-13 15:47 | disposition home or self-care (01) ==
LOC: EDUNIT# 15:13 → ER 15:15
DX: Z45.2 Encounter for adjustment and management of vascular access device (principal); M86.9 Osteomyelitis, unspecified; F17.290 Nicotine dependence, other tobacco product, uncomplicated; Z28.311 Partially vaccinated for COVID-19
CPT/HCPCS: 99281

== ENCOUNTER → 2022-01-21 | Outpatient (CLI) | payer OTHER ==
[2022-01-21 17:25] LABS: BASOPHILS # (AUTO) 0.2 10^3/uL (0.0-0.1); BASOPHILS % (AUTO) 1 % (0-10); EOSINOPHILS # (AUTO) 0.2 10^3/uL (0.0-0.3); EOSINOPHILS % (AUTO) 1 % (0-10); HEMATOCRIT 46 % (40-54); LYMPHOCYTES # (AUTO) 2.7 10^3/uL (1.0-4.0); LYMPHOCYTES % (AUTO) 17 % (12-44); MEAN CORPUSCULAR HEMOGLOBIN 29 pg (25-34); MEAN CORPUSCULAR HGB CONC 33 g/dL (32-36); MEAN CORPUSCULAR VOLUME 88 fL (80-99); MEAN PLATELET VOLUME 10.8 fL (9.0-12.2); MONOCYTES # (AUTO) 2.5 10^3/uL (0.0-1.0); MONOCYTES % (AUTO) 17 % (0-12); NEUTROPHILS # (AUTO) 9.5 10^3/uL (1.8-7.8); NEUTROPHILS % (AUTO) 62 % (42-75); PLATELET COUNT 345 10^3/uL (130-400); WHITE BLOOD COUNT 15.2 10^3/uL (4.3-11.0)
[2022-01-21 17:46] LABS: ALBUMIN 4.2 GM/DL (3.2-4.5)
[2022-01-21 17:47] LABS: BAND NEUTROPHILS 0 %; BASOPHILS % (MANUAL) 1 %; EOSINOPHILS % (MANUAL) 1 %; ERYTHROCYTE SEDIMENTATION RATE 17 MM/HR (0-15); LYMPHOCYTES % (MANUAL) 15 %; MONOCYTES % (MANUAL) 14 %; NEUTROPHILS % (MANUAL) 69 %; POTASSIUM 4.3 MMOL/L (3.6-5.0); RBC MORPH NORMAL
[2022-01-21 17:48] LABS: CALCIUM 9.1 MG/DL (8.5-10.1)
[2022-01-21 17:49] LABS: TOTAL PROTEIN 7.6 GM/DL (6.4-8.2)
[2022-01-21 17:51] LABS: BILIRUBIN,TOTAL 0.4 MG/DL (0.1-1.0)
[2022-01-21 17:53] LABS: CREATININE SERUM 0.99 MG/DL (0.60-1.30)
== END ==
LOC: HH 17:15
PROVIDERS: ATTEND Internal Medicine Infectious Disease
DX: M89.50 Osteolysis, unspecified site (principal)
CPT/HCPCS: 80053; 82550; 85007; 85027; 85652

== ENCOUNTER → 2022-02-04 | Outpatient (CLI) | payer OTHER ==
[2022-02-04 12:19] LABS: HEMATOCRIT 51 % (32-48); HEMOGLOBIN 16.3 g/dL (10.9-15.8); MEAN CORPUSCULAR HEMOGLOBIN 28 pg (25-34); MEAN CORPUSCULAR HGB CONC 32 g/dL (32-36); MEAN CORPUSCULAR VOLUME 88 fL (80-99); MEAN PLATELET VOLUME 10.6 fL (9.0-12.2); PLATELET COUNT 433 10^3/uL (130-400); WHITE BLOOD COUNT 11.1 10^3/uL (4.3-11.0)
[2022-02-04 12:41] LABS: ERYTHROCYTE SEDIMENTATION RATE 2 MM/HR
[2022-02-04 12:44] LABS: ALBUMIN 4.4 GM/DL (3.2-4.5); CHLORIDE 103 MMOL/L (98-107); POTASSIUM 4.7 MMOL/L (3.6-5.0); SODIUM 135 MMOL/L (135-145)
[2022-02-04 12:45] LABS: CALCIUM 9.5 MG/DL (8.5-10.1)
[2022-02-04 12:47] LABS: GLUCOSE 104 MG/DL (70-105)
[2022-02-04 12:48] LABS: BILIRUBIN,TOTAL 0.4 MG/DL (0.1-1.0); CARBON DIOXIDE 21 MMOL/L (21-32)
[2022-02-04 12:50] LABS: ALKALINE PHOSPHATASE 142 U/L (40-136)
[2022-02-04 12:51] LABS: BUN/CREATININE RATIO 12
[2022-02-04 12:53] LABS: ALANINE AMINOTRANSFERASE 40 U/L (0-55); CREATINE KINASE 141 U/L
== END ==
LOC: HH 12:10
PROVIDERS: ATTEND Internal Medicine Infectious Disease
DX: M86.271 Subacute osteomyelitis, right ankle and foot (principal); Z79.2 Long term (current) use of antibiotics
CPT/HCPCS: 80053; 82550; 85027; 85652

== ENCOUNTER → 2022-02-11 | Outpatient (CLI) | payer OTHER ==
[2022-02-11 11:54] LABS: BASOPHILS # (AUTO) 0.1 10^3/uL (0.0-0.1); BASOPHILS % (AUTO) 1 % (0-10); EOSINOPHILS # (AUTO) 0.2 10^3/uL (0.0-0.3); EOSINOPHILS % (AUTO) 2 % (0-10); HEMATOCRIT 49 % (32-48); HEMOGLOBIN 15.8 g/dL (10.9-15.8); LYMPHOCYTES # (AUTO) 2.5 10^3/uL (1.0-4.0); LYMPHOCYTES % (AUTO) 25 % (12-44); MEAN CORPUSCULAR HEMOGLOBIN 28 pg (25-34); MEAN CORPUSCULAR HGB CONC 32 g/dL (32-36); MEAN CORPUSCULAR VOLUME 88 fL (80-99); MONOCYTES # (AUTO) 1.3 10^3/uL (0.0-1.0); MONOCYTES % (AUTO) 13 % (0-12); NEUTROPHILS # (AUTO) 5.8 10^3/uL (1.8-7.8); NEUTROPHILS % (AUTO) 57 % (42-75); PLATELET COUNT 410 10^3/uL (130-400); WHITE BLOOD COUNT 10.2 10^3/uL (4.3-11.0)
[2022-02-11 12:07] LABS: BAND NEUTROPHILS 1 %; EOSINOPHILS % (MANUAL) 3 %; LYMPHOCYTES % (MANUAL) 20 %; MONOCYTES % (MANUAL) 18 %; NEUTROPHILS % (MANUAL) 58 %; RBC MORPH NORMAL
[2022-02-11 12:13] LABS: ERYTHROCYTE SEDIMENTATION RATE 2 MM/HR
[2022-02-11 12:15] LABS: ALANINE AMINOTRANSFERASE 43 U/L (0-55); ALBUMIN 4.2 GM/DL (3.2-4.5); ALKALINE PHOSPHATASE 133 U/L (40-136); BILIRUBIN,TOTAL 0.3 MG/DL (0.1-1.0); BUN/CREATININE RATIO 11; CALCIUM 9.3 MG/DL (8.5-10.1); CARBON DIOXIDE 23 MMOL/L (21-32); CHLORIDE 105 MMOL/L (98-107); CREATINE KINASE 121 U/L; CREATININE SERUM 0.82 MG/DL (0.60-1.30); GLUCOSE 98 MG/DL (70-105); POTASSIUM 4.6 MMOL/L (3.6-5.0); SODIUM 137 MMOL/L (135-145); TOTAL PROTEIN 7.9 GM/DL (6.4-8.2)
== END ==
LOC: HH 11:05
PROVIDERS: ATTEND Internal Medicine Infectious Disease
DX: M86.271 Subacute osteomyelitis, right ankle and foot (principal)
CPT/HCPCS: 80053; 82550; 85007; 85027; 85652